=== PATIENT | female | born 1965 | race Two or more races ===

== ENCOUNTER 2020-11-14 15:02 | Emergency (ER) | payer SELFPAY ==
[~2020-11-14] VITALS: Ht 157.5 cm; Wt 95.3 kg
[2020-11-14] MEDS ORDERED: cloNIDine HCL 0.1 MG TAB PO ONE (15:15)
[2020-11-14 16:22] VITALS: BP 138/90
== END 2020-11-14 16:40 | disposition home or self-care (01) ==
LOC: ER 15:02
DX: L73.9 Follicular disorder, unspecified (principal); I10 Essential (primary) hypertension; F17.210 Nicotine dependence, cigarettes, uncomplicated